=== PATIENT | female | born 1970 | race Caucasian/White ===

== ENCOUNTER 2018-02-16 21:56 | Inpatient (IN) | payer OTHER ==
[2018-02-17 00:47] LABS: ADD MAN DIFF? NO
[2018-02-17 00:50] LABS: ABNORMAL IP MESSAGE 1; BASOPHIL # 0.1 10^3/ul (0.0-0.1); EOSINOPHILS % 0.2 % (0.0-7.0); HEMATOCRIT 28.2 % (37.0-47.0); HEMOGLOBIN 8.2 g/dl (12.0-16.0); LYMPHOCYTES # 0.5 10^3/ul (0.8-2.9); LYMPHOCYTES % 9.7 % (15.0-51.0); MEAN CORPUSCULAR HEMOGLOBIN 23.2 pg (29.0-33.0); MEAN CORPUSCULAR HGB CONC 29.1 g/dl (32.0-37.0); MEAN CORPUSCULAR VOLUME 79.7 fl (82.0-101.0); MEAN PLATELET VOLUME 10.1 fl (7.4-10.4); MONOCYTE # 0.1 10^3/ul (0.3-0.9); MONOCYTES % 2.5 % (0.0-11.0); NEUTROPHIL # 4.5 10^3/ul (1.6-7.5); PLATELET COUNT 255 10^3/UL (140-415); RED BLOOD COUNT 3.54 10^6/ul (4.20-5.40); RED CELL DISTRIBUTION WIDTH 21.9 % (11.5-14.5)
[2018-02-17 00:50] LABS: WHITE BLOOD COUNT 5.3 10^3/ul (4.8-10.8)
[2018-02-17 01:08] LABS: POSITIVE DIFF @See below
[2018-02-17 01:11] LABS: ALANINE AMINOTRANSFERASE 26 IU/L (13-69); ALBUMIN 3.3 g/dl (3.3-4.9); ALBUMIN/GLOBULIN RATIO 1.13; ALKALINE PHOSPHATASE 72 IU/L (42-121); ANION GAP 9 (8-16); ASPARTATE AMINO TRANSFERASE 26 IU/L (15-46); BILIRUBIN,INDIRECT 0.2 mg/dl (0-1.1); BILIRUBIN,TOTAL 0.2 mg/dl (0.2-1.3); BLOOD UREA NITROGEN 5 mg/dl (7-20); CALCIUM 8.3 mg/dl (8.4-10.2); CARBON DIOXIDE 26 mmol/L (21-31); CHLORIDE 109 mmol/L (97-110); CREATININE 0.59 mg/dl (0.44-1.00); GLUCOSE 123 mg/dl (70-220); MAGNESIUM 1.6 mg/dl (1.7-2.5); PHOSPHORUS 3.5 mg/dl (2.5-4.9); POTASSIUM 4.1 mmol/L (3.5-5.1); SODIUM 140 mmol/L (135-144); TOTAL PROTEIN 6.2 g/dl (6.1-8.1)
[2018-02-17] MEDS ORDERED: ONDANSETRON 4 MG INJ IV (04:00)
[2018-02-17] MEDS ORDERED: ALBUTEROL/IPRATROPIUM (NEB) 3 ML AMP HHN (04:00)
[2018-02-17] MEDS ORDERED: NACL 0.9% 3 ML SYG IV (04:00)
[2018-02-17] MEDS ORDERED: ACETAMINOPHEN 325 MG TAB PO (04:00)
[2018-02-17] MEDS: CLINDAMYCIN 600 MG/D5W (PMX) 50 ML IVPB ×3 (05:43→21:24)
[2018-02-17] MEDS: morphine 2 MG INJ IV ×3 (05:43→21:29)
[2018-02-17 05:50] LABS: ADD MAN DIFF? NO
[2018-02-17 05:53] LABS: ABNORMAL IP MESSAGE 1; BASOPHILS % 0.4 % (0.0-2.0); HEMATOCRIT 28.4 % (37.0-47.0); HEMOGLOBIN 8.4 g/dl (12.0-16.0); LYMPHOCYTES # 0.4 10^3/ul (0.8-2.9); LYMPHOCYTES % 8.9 % (15.0-51.0); MEAN CORPUSCULAR HEMOGLOBIN 23.7 pg (29.0-33.0); MEAN CORPUSCULAR HGB CONC 29.6 g/dl (32.0-37.0); MEAN CORPUSCULAR VOLUME 80.2 fl (82.0-101.0); MEAN PLATELET VOLUME 10.4 fl (7.4-10.4); MONOCYTE # 0.1 10^3/ul (0.3-0.9); MONOCYTES % 1.5 % (0.0-11.0); NEUTROPHIL # 4.1 10^3/ul (1.6-7.5); PLATELET COUNT 283 10^3/UL (140-415); RED BLOOD COUNT 3.54 10^6/ul (4.20-5.40); RED CELL DISTRIBUTION WIDTH 21.9 % (11.5-14.5)
[2018-02-17 05:53] LABS: WHITE BLOOD COUNT 4.6 10^3/ul (4.8-10.8)
[2018-02-17 06:15] LABS: PROTIME 13.3 Sec (11.9-14.9)
[2018-02-17 06:16] LABS: PARTIAL THROMBOPLASTIN TIME 29.2 Sec (25.0-35.0)
[2018-02-17 06:31] LABS: POSITIVE DIFF @See below
[2018-02-17 06:44] LABS: ALANINE AMINOTRANSFERASE 24 IU/L (13-69); ALBUMIN 3.4 g/dl (3.3-4.9); ALBUMIN/GLOBULIN RATIO 1.17; ALKALINE PHOSPHATASE 81 IU/L (42-121); ANION GAP 9 (8-16); ASPARTATE AMINO TRANSFERASE 36 IU/L (15-46); BILIRUBIN,INDIRECT 0.3 mg/dl (0-1.1); BILIRUBIN,TOTAL 0.3 mg/dl (0.2-1.3); BLOOD UREA NITROGEN 6 mg/dl (7-20); CALCIUM 8.8 mg/dl (8.4-10.2); CARBON DIOXIDE 27 mmol/L (21-31); CHLORIDE 108 mmol/L (97-110); CREATININE 0.55 mg/dl (0.44-1.00); GLUCOSE 133 mg/dl (70-220); POTASSIUM 3.9 mmol/L (3.5-5.1); SODIUM 140 mmol/L (135-144); TOTAL PROTEIN 6.3 g/dl (6.1-8.1)
[2018-02-17] MEDS: FOLIC ACID 1 MG TAB PO (08:55)
[2018-02-17] MEDS: MULTIVITAMINS THERAPEUTIC TAB PO (08:55)
[2018-02-17] MEDS: THIAMINE 100 MG TAB PO (08:55)
[2018-02-17] MEDS: NICOTINE (14 MG/24 HR) PATCH TRANSDERM (08:58)
[2018-02-18 05:01] LABS: ADD MAN DIFF? NO
[2018-02-18 05:09] LABS: BASOPHIL # 0.1 10^3/ul (0.0-0.1); EOSINOPHILS # 0.1 10^3/ul (0.0-0.5); EOSINOPHILS % 1.3 % (0.0-7.0); HEMATOCRIT 27.7 % (37.0-47.0); HEMOGLOBIN 8.2 g/dl (12.0-16.0); LYMPHOCYTES # 2.6 10^3/ul (0.8-2.9); LYMPHOCYTES % 37.2 % (15.0-51.0); MEAN CORPUSCULAR HEMOGLOBIN 23.4 pg (29.0-33.0); MEAN CORPUSCULAR HGB CONC 29.6 g/dl (32.0-37.0); MEAN CORPUSCULAR VOLUME 79.1 fl (82.0-101.0); MEAN PLATELET VOLUME 10.5 fl (7.4-10.4); MONOCYTE # 0.4 10^3/ul (0.3-0.9); MONOCYTES % 5.3 % (0.0-11.0); NEUTROPHIL # 3.9 10^3/ul (1.6-7.5); NEUTROPHILS % 54.9 % (39.0-77.0); PLATELET COUNT 261 10^3/UL (140-415); RED CELL DISTRIBUTION WIDTH 21.8 % (11.5-14.5)
[2018-02-18] MEDS: CLINDAMYCIN 600 MG/D5W (PMX) 50 ML IVPB (05:14)
[2018-02-18] MEDS: morphine 2 MG INJ IV ×2 (05:20→19:11)
[2018-02-18 05:31] LABS: ANION GAP 11 (8-16); BLOOD UREA NITROGEN 8 mg/dl (7-20); CALCIUM 8.3 mg/dl (8.4-10.2); CARBON DIOXIDE 24 mmol/L (21-31); CHLORIDE 109 mmol/L (97-110); GLUCOSE 82 mg/dl (70-220); MAGNESIUM 1.6 mg/dl (1.7-2.5); PHOSPHORUS 4.5 mg/dl (2.5-4.9); POTASSIUM 3.9 mmol/L (3.5-5.1); SODIUM 140 mmol/L (135-144)
[2018-02-18 06:09] LABS: CREATININE 0.56 mg/dl (0.44-1.00)
[2018-02-18] MEDS: NICOTINE (14 MG/24 HR) PATCH TRANSDERM (08:06)
[2018-02-18] MEDS: THIAMINE 100 MG TAB PO (08:06)
[2018-02-18] MEDS: FOLIC ACID 1 MG TAB PO (08:06)
[2018-02-18] MEDS: MULTIVITAMINS THERAPEUTIC TAB PO (08:06)
[2018-02-18] MEDS: MAGNESIUM OXIDE 400 MG TAB PO (10:28)
[2018-02-18] MEDS ORDERED: VANCOMYCIN IV PER PHARMACY XX (13:00)
[2018-02-18] MEDS: VANCOMYCIN 1 GM 250 ML IVPB (13:59)
[2018-02-18] MEDS: MAGNESIUM SULFATE 2 GM/50 ML 50 ML IVPB (16:04)
[2018-02-18] MEDS: ONDANSETRON 4 MG INJ IV (19:11)
[2018-02-18] MEDS: MAGNESIUM CHLORIDE (SR) 64 MG TAB PO (20:40)
[2018-02-19] MEDS: VANCOMYCIN 750 MG in DEXTROSE 5% 150 ML IVPB ×2 (02:21→14:10)
[2018-02-19 05:50] LABS: ADD MAN DIFF? NO; BASOPHIL # 0.1 10^3/ul (0.0-0.1); BASOPHILS % 1.1 % (0.0-2.0); EOSINOPHILS # 0.2 10^3/ul (0.0-0.5); EOSINOPHILS % 3.4 % (0.0-7.0); HEMATOCRIT 31.4 % (37.0-47.0); HEMOGLOBIN 9.4 g/dl (12.0-16.0); LYMPHOCYTES # 2.3 10^3/ul (0.8-2.9); LYMPHOCYTES % 35.5 % (15.0-51.0); MEAN CORPUSCULAR HEMOGLOBIN 23.7 pg (29.0-33.0); MEAN CORPUSCULAR HGB CONC 29.9 g/dl (32.0-37.0); MEAN CORPUSCULAR VOLUME 79.1 fl (82.0-101.0); MEAN PLATELET VOLUME 10.3 fl (7.4-10.4); MONOCYTE # 0.4 10^3/ul (0.3-0.9); MONOCYTES % 5.8 % (0.0-11.0); NEUTROPHIL # 3.6 10^3/ul (1.6-7.5); PLATELET COUNT 289 10^3/UL (140-415); RED BLOOD COUNT 3.97 10^6/ul (4.20-5.40); RED CELL DISTRIBUTION WIDTH 21.7 % (11.5-14.5)
[2018-02-19 05:50] LABS: WHITE BLOOD COUNT 6.6 10^3/ul (4.8-10.8)
[2018-02-19 06:17] LABS: IRON 33 ug/dl (35-150)
[2018-02-19 06:22] LABS: ANION GAP 11 (8-16); BLOOD UREA NITROGEN 8 mg/dl (7-20); CALCIUM 8.9 mg/dl (8.4-10.2); CARBON DIOXIDE 30 mmol/L (21-31); CHLORIDE 105 mmol/L (97-110); CREATININE 0.58 mg/dl (0.44-1.00); GLUCOSE 76 mg/dl (70-220); MAGNESIUM 2.1 mg/dl (1.7-2.5); POTASSIUM 4.5 mmol/L (3.5-5.1); SODIUM 141 mmol/L (135-144)
[2018-02-19 06:26] LABS: % IRON SATURATION 9 % SAT (22-52); TOTAL IRON BINDING CAPACITY 377 ug/dl (241-421)
[2018-02-19 06:52] LABS: FERRITIN 9.1 ng/ml (6.2-137.0)
[2018-02-19] MEDS: MAGNESIUM CHLORIDE (SR) 64 MG TAB PO (08:37)
[2018-02-19] MEDS: FOLIC ACID 1 MG TAB PO (08:37)
[2018-02-19] MEDS: MULTIVITAMINS THERAPEUTIC TAB PO (08:37)
[2018-02-19] MEDS: NICOTINE (14 MG/24 HR) PATCH TRANSDERM (08:39)
[2018-02-19] MEDS: THIAMINE 100 MG TAB PO (09:55)
== END 2018-02-19 16:03 | disposition home or self-care (01) | DRG 603 ==
LOC: MS3 21:56
DX: L03.221 Cellulitis of neck (principal); I47.2 Ventricular tachycardia; H91.3 Deaf nonspeaking, not elsewhere classified; J43.9 Emphysema, unspecified; F10.10 Alcohol abuse, uncomplicated; E83.42 Hypomagnesemia; I34.0 Nonrheumatic mitral (valve) insufficiency; F17.210 Nicotine dependence, cigarettes, uncomplicated
CPT/HCPCS: 80048; 80053; 82728; 83540; 83735; 84100; 85025; 85610; 85730; 87070; 93005; 93306

== ENCOUNTER 2018-03-10 07:14 | Emergency (ER) | payer OTHER ==
[2018-03-10] MEDS: ALBUTEROL 0.083% (NEB) 2.5 MG/3 ML AMP HHN (08:01)
[2018-03-10 08:21] LABS: ADD MAN DIFF? NO
[2018-03-10 08:24] LABS: BASOPHIL # 0.1 10^3/ul (0.0-0.1); BASOPHILS % 1.2 % (0.0-2.0); EOSINOPHILS % 0.2 % (0.0-7.0); HEMATOCRIT 31.6 % (37.0-47.0); HEMOGLOBIN 9.9 g/dl (12.0-16.0); LYMPHOCYTES # 0.9 10^3/ul (0.8-2.9); LYMPHOCYTES % 9.9 % (15.0-51.0); MEAN CORPUSCULAR HEMOGLOBIN 23.7 pg (29.0-33.0); MEAN CORPUSCULAR HGB CONC 31.3 g/dl (32.0-37.0); MEAN CORPUSCULAR VOLUME 75.8 fl (82.0-101.0); MEAN PLATELET VOLUME 9.4 fl (7.4-10.4); MONOCYTE # 0.4 10^3/ul (0.3-0.9); MONOCYTES % 4.5 % (0.0-11.0); NEUTROPHIL # 7.9 10^3/ul (1.6-7.5); NEUTROPHILS % 83.9 % (39.0-77.0); PLATELET COUNT 314 10^3/UL (140-415); RED BLOOD COUNT 4.17 10^6/ul (4.20-5.40); RED CELL DISTRIBUTION WIDTH 21.3 % (11.5-14.5)
[2018-03-10 08:24] LABS: WHITE BLOOD COUNT 9.4 10^3/ul (4.8-10.8)
[2018-03-10 08:45] LABS: ALANINE AMINOTRANSFERASE 24 IU/L (13-69); ALBUMIN 4.5 g/dl (3.3-4.9); ALBUMIN/GLOBULIN RATIO 1.21; ALKALINE PHOSPHATASE 81 IU/L (42-121); ANION GAP 20 (8-16); ASPARTATE AMINO TRANSFERASE 43 IU/L (15-46); BILIRUBIN,INDIRECT 0.7 mg/dl (0-1.1); BILIRUBIN,TOTAL 0.7 mg/dl (0.2-1.3); BLOOD UREA NITROGEN 8 mg/dl (7-20); CALCIUM 9.3 mg/dl (8.4-10.2); CARBON DIOXIDE 22 mmol/L (21-31); CHLORIDE 103 mmol/L (97-110); CREATININE 0.61 mg/dl (0.44-1.00); GLUCOSE 81 mg/dl (70-220); LIPASE 275 U/L (23-300); POTASSIUM 4.5 mmol/L (3.5-5.1); SODIUM 140 mmol/L (135-144); TOTAL PROTEIN 8.2 g/dl (6.1-8.1)
[2018-03-10 09:01] LABS: TROPONIN-I < 0.012 ng/ml (0.000-0.120)
== END 2018-03-10 09:41 | disposition home or self-care (01) ==
LOC: E/R 07:14
DX: J44.1 Chronic obstructive pulmonary disease with (acute) exacerbation (principal); R07.9 Chest pain, unspecified; F17.210 Nicotine dependence, cigarettes, uncomplicated
CPT/HCPCS: 36415; 71045; 80053; 83690; 84484; 85025; 93005; 94664; 99285-25

== ENCOUNTER 2019-01-23 00:19 | Inpatient (IN) | payer OTHER ==
[2019-01-23] MEDS ORDERED: NACL 0.9% 3 ML SYG IV (02:30)
[2019-01-23] MEDS ORDERED: NITROGLYCERIN (SL) 0.4 MG TAB SL (02:30)
[2019-01-23] MEDS ORDERED: ONDANSETRON 4 MG INJ IV (02:30)
[2019-01-23] MEDS ORDERED: ACETAMINOPHEN 325 MG TAB PO (02:30)
[2019-01-23] MEDS ORDERED: ALBUTEROL/IPRATROPIUM (NEB) 3 ML AMP HHN (02:30)
[2019-01-23] MEDS: HYDROCODONE/APAP (5/325) TAB PO ×2 (02:31→19:08)
[2019-01-23] MEDS: METHYLPREDNISOLONE 125 MG INJ IV (02:31)
[2019-01-23] MEDS: PANTOPRAZOLE 40 MG INJ IV ×2 (05:58→17:43)
[2019-01-23 06:41] LABS: ADD MAN DIFF? NO
[2019-01-23 06:53] LABS: ABNORMAL IP MESSAGE 1; BASOPHILS % 1.2 % (0.0-2.0); EOSINOPHILS % 0.6 % (0.0-7.0); HEMATOCRIT 30.2 % (37.0-47.0); HEMOGLOBIN 9.1 g/dl (12.0-16.0); LYMPHOCYTES # 0.5 10^3/ul (0.8-2.9); LYMPHOCYTES % 13.6 % (15.0-51.0); MEAN CORPUSCULAR HEMOGLOBIN 25.1 pg (29.0-33.0); MEAN CORPUSCULAR HGB CONC 30.1 g/dl (32.0-37.0); MEAN CORPUSCULAR VOLUME 83.4 fl (82.0-101.0); MEAN PLATELET VOLUME 10.6 fl (7.4-10.4); MONOCYTE # 0.1 10^3/ul (0.3-0.9); MONOCYTES % 2.1 % (0.0-11.0); NEUTROPHIL # 2.7 10^3/ul (1.6-7.5); NEUTROPHILS % 81.9 % (39.0-77.0); PLATELET COUNT 213 10^3/UL (140-415); RED BLOOD COUNT 3.62 10^6/ul (4.20-5.40); RED CELL DISTRIBUTION WIDTH 21.2 % (11.5-14.5)
[2019-01-23 06:53] LABS: WHITE BLOOD COUNT 3.3 10^3/ul (4.8-10.8)
[2019-01-23 06:54] LABS: POSITIVE DIFF @See below
[2019-01-23 07:22] LABS: LIPASE 504 U/L (23-300)
[2019-01-23 07:23] LABS: ETHANOL < 10.0 mg/dl (0-0)
[2019-01-23 07:24] LABS: ALANINE AMINOTRANSFERASE 58 IU/L (13-69); ALBUMIN 3.5 g/dl (3.3-4.9); ALKALINE PHOSPHATASE 77 IU/L (42-121); ANION GAP 8 (5-13); ASPARTATE AMINO TRANSFERASE 112 IU/L (15-46); BILIRUBIN,INDIRECT 0.5 mg/dl (0-1.1); BILIRUBIN,TOTAL 0.5 mg/dl (0.2-1.3); BLOOD UREA NITROGEN 8 mg/dl (7-20); CALCIUM 8.8 mg/dl (8.4-10.2); CARBON DIOXIDE 21 mmol/L (21-31); CHLORIDE 108 mmol/L (97-110); CREATININE 0.53 mg/dl (0.44-1.00); Estimated GFR > 60 mL/min (>60); GLUCOSE 86 mg/dl (70-220); MAGNESIUM 2.3 mg/dl (1.7-2.5); POTASSIUM 3.9 mmol/L (3.5-5.1); SODIUM 137 mmol/L (135-144); TOTAL PROTEIN 6.5 g/dl (6.1-8.1)
[2019-01-23 07:25] LABS: ALBUMIN/GLOBULIN RATIO 1.16; CHOLESTEROL 153 mg/dl (100-200); CREATINE KINASE 63 IU/L (23-200); TRIGLYCERIDES 59 mg/dl (0-149)
[2019-01-23 07:30] LABS: CK INDEX 1.3; CK-MB 0.84 ng/ml (0.0-2.4); TROPONIN-I < 0.012 ng/ml (0.000-0.120)
[2019-01-23 07:36] LABS: CHOL/HDL RATIO 1.3 RATIO; HDL CHOLESTEROL 113 mg/dl (34-88); LDL CHOLESTEROL,CALCULATED 28 mg/dl
[2019-01-23] MEDS ORDERED: HEPARIN 5,000 UNIT/1 ML VIAL SC (09:00)
[2019-01-23] MEDS: NICOTINE (21 MG/24 HR) PATCH TRANSDERM (10:00)
[2019-01-23 10:36] LABS: AMPHETAMINE/METHAMPHETAMINE Negative (NEGATIVE); BARBITURATES Negative (NEGATIVE); BENZODIAZEPINES Negative (NEGATIVE); CANNABINOIDS Negative (NEGATIVE); COCAINE Negative (NEGATIVE)
[2019-01-23 10:46] LABS: OPIATES Positive (NEGATIVE)
[2019-01-23] MEDS: TIOTROPIUM 18 MCG CAPSULE INHA DEV INH (11:05)
[2019-01-23 11:26] LABS: HEMATOCRIT 30.5 % (37.0-47.0); HEMOGLOBIN 9.3 g/dl (12.0-16.0)
[2019-01-23 11:50] LABS: CREATINE KINASE 54 IU/L (23-200)
[2019-01-23 12:03] LABS: CK-MB 0.53 ng/ml (0.0-2.4); TROPONIN-I < 0.012 ng/ml (0.000-0.120)
[2019-01-23] MEDS: SOD FERRIC GLUC COMPLX 125 MG in SOD CHLORIDE 0.9% 100 ML IVPB (12:10)
[2019-01-23 12:21] LABS: IRON 14 ug/dl (35-150)
[2019-01-23 12:23] LABS: CARCINOEMBRYONIC ANTIGEN 3.9 ng/ml (0.0-5.0)
[2019-01-23 12:25] LABS: FERRITIN 16.9 ng/ml (6.2-137.0)
[2019-01-23 12:31] LABS: % IRON SATURATION 4 % SAT (22-52); TOTAL IRON BINDING CAPACITY 331 ug/dl (241-421)
[2019-01-23] MEDS: BISACODYL (EC) 5 MG TAB PO (15:48)
[2019-01-23] MEDS: MAGNESIUM CITRATE 300 ML BTL PO (17:43)
[2019-01-23] MEDS: POLYETHYLENE GLYCOL 3350 119 GM POWDER PO (17:43)
[2019-01-23 18:26] LABS: HEMATOCRIT 31.1 % (37.0-47.0); HEMOGLOBIN 9.3 g/dl (12.0-16.0)
[2019-01-23 19:01] LABS: TROPONIN-I < 0.012 ng/ml (0.000-0.120)
[2019-01-24] MEDS: HYDROCODONE/APAP (5/325) TAB PO (00:53)
[2019-01-24 00:57] LABS: HEMATOCRIT 28.2 % (37.0-47.0); HEMOGLOBIN 8.6 g/dl (12.0-16.0)
[2019-01-24 05:10] LABS: ADD MAN DIFF? NO
[2019-01-24 05:12] LABS: WHITE BLOOD COUNT 4.9 10^3/ul (4.8-10.8)
[2019-01-24 05:12] LABS: BASOPHILS % 0.8 % (0.0-2.0); EOSINOPHILS # 0.1 10^3/ul (0.0-0.5); EOSINOPHILS % 1.4 % (0.0-7.0); HEMATOCRIT 28.2 % (37.0-47.0); HEMOGLOBIN 8.5 g/dl (12.0-16.0); LYMPHOCYTES % 39.6 % (15.0-51.0); MEAN CORPUSCULAR HEMOGLOBIN 25.7 pg (29.0-33.0); MEAN CORPUSCULAR HGB CONC 30.1 g/dl (32.0-37.0); MEAN CORPUSCULAR VOLUME 85.2 fl (82.0-101.0); MEAN PLATELET VOLUME 10.9 fl (7.4-10.4); MONOCYTE # 0.4 10^3/ul (0.3-0.9); MONOCYTES % 8.5 % (0.0-11.0); NEUTROPHIL # 2.4 10^3/ul (1.6-7.5); NEUTROPHILS % 49.3 % (39.0-77.0); PLATELET COUNT 212 10^3/UL (140-415); RED BLOOD COUNT 3.31 10^6/ul (4.20-5.40); RED CELL DISTRIBUTION WIDTH 21.4 % (11.5-14.5)
[2019-01-24 05:44] LABS: ANION GAP 9 (5-13); BLOOD UREA NITROGEN 9 mg/dl (7-20); CALCIUM 8.4 mg/dl (8.4-10.2); CARBON DIOXIDE 24 mmol/L (21-31); CHLORIDE 105 mmol/L (97-110); CREATININE 0.47 mg/dl (0.44-1.00); Estimated GFR > 60 mL/min (>60); GLUCOSE 85 mg/dl (70-220); MAGNESIUM 2.1 mg/dl (1.7-2.5); PHOSPHORUS 2.9 mg/dl (2.5-4.9); SODIUM 138 mmol/L (135-144)
[2019-01-24] MEDS: PANTOPRAZOLE 40 MG INJ IV (05:55)
[2019-01-24] MEDS: BISACODYL (EC) 5 MG TAB PO (07:03)
[2019-01-24] MEDS: POLYETHYLENE GLYCOL 3350 119 GM POWDER PO (07:04)
[2019-01-24] MEDS: POTASSIUM CHLORIDE (SR) 20 MEQ TAB PO (07:27)
[2019-01-24] MEDS: NICOTINE (21 MG/24 HR) PATCH TRANSDERM (09:00)
[2019-01-24] MEDS: TIOTROPIUM 18 MCG CAPSULE INHA DEV INH (09:00)
[2019-01-24 09:52] LABS: HEMATOCRIT 31.2 % (37.0-47.0); HEMOGLOBIN 9.3 g/dl (12.0-16.0)
[2019-01-24] MEDS ORDERED: POTASSIUM CHLORIDE 100 ML IVPB (10:00)
[2019-01-24] MEDS ORDERED: MUPIROCIN 2% 22 GM OINT TOP (10:30)
[2019-01-24] MEDS: MUPIROCIN 2% 22 GM OINT TOP (11:39)
[2019-01-24] MEDS ORDERED: LIDOCAINE 100 MG SYRINGE (11:55)
[2019-01-24] MEDS ORDERED: PROPOFOL 40 ML (11:55)
[2019-01-24] MEDS ORDERED: ONDANSETRON 4 MG INJ IV (12:00)
[2019-01-24] MEDS ORDERED: METOCLOPRAMIDE 10 MG INJ IV (12:00)
[2019-01-24] MEDS ORDERED: hydrALAzine 20 MG INJ IV (12:00)
[2019-01-24] MEDS ORDERED: LABETALOL HCL 20MG INJ IV (12:00)
[2019-01-24] MEDS: SOD FERRIC GLUC COMPLX 125 MG in SOD CHLORIDE 0.9% 100 ML IVPB (14:43)
== END 2019-01-24 14:40 | disposition left against medical advice (07) | DRG 378 ==
LOC: 6WM 00:19
PROC: 0DB98ZX Excision of Duodenum, Via Natural or Artificial Opening Endoscopic, Diagnostic (ICD-10-PCS; principal; 2019-01-24 12:04)
PROC: 0DB68ZX Excision of Stomach, Via Natural or Artificial Opening Endoscopic, Diagnostic (ICD-10-PCS; 2019-01-24 12:04)
PROC: 0DBG8ZX Excision of Left Large Intestine, Via Natural or Artificial Opening Endoscopic, Diagnostic (ICD-10-PCS; 2019-01-24 12:04)
PROC: 0DBL8ZX Excision of Transverse Colon, Via Natural or Artificial Opening Endoscopic, Diagnostic (ICD-10-PCS; 2019-01-24 12:04)
PROC: 0DBF8ZX Excision of Right Large Intestine, Via Natural or Artificial Opening Endoscopic, Diagnostic (ICD-10-PCS; 2019-01-24 12:04)
DX: K92.0 Hematemesis (principal); D62 Acute posthemorrhagic anemia; K62.5 Hemorrhage of anus and rectum; R42 Dizziness and giddiness; Z72.0 Tobacco use; F10.20 Alcohol dependence, uncomplicated; Z59.0 Homelessness; Z22.322 Carrier or suspected carrier of Methicillin resistant Staphylococcus aureus; Z91.19 Patient's noncompliance with other medical treatment and regimen; H91.93 Unspecified hearing loss, bilateral; R07.9 Chest pain, unspecified; J43.8 Other emphysema; K64.8 Other hemorrhoids; K31.84 Gastroparesis
CPT/HCPCS: 71045; 74018; 80048; 80053; 80061; 80307; 82378; 82550; 82553; 82728; 83540; 83690; 83735; 84100; 84484; 84703; 85014; 85018; 85025; 87081; 88305; 93005; 93306; 93880

== ENCOUNTER 2019-03-02 16:12 | Inpatient (IN) | payer OTHER ==
[2019-03-02] MEDS ORDERED: IPRATROPIUM (NEB) 0.5 MG/2.5 ML AMP HHN (17:00)
[2019-03-02] MEDS ORDERED: ACETAMINOPHEN 325 MG TAB PO (17:00)
[2019-03-02] MEDS ORDERED: NACL 0.9% 3 ML SYG IV (17:00)
[2019-03-02] MEDS ORDERED: LEVALBUTEROL (NEB) 1.25 MG/0.5 ML AMP HHN (17:00)
[2019-03-02] MEDS ORDERED: ONDANSETRON 4 MG INJ IV (17:00)
[2019-03-02] MEDS ORDERED: LORAZEPAM 2 MG INJ IV (17:30)
[2019-03-02] MEDS: SUCRALFATE (100 MG/ML) 10ML CUP PO ×2 (17:30→21:00)
[2019-03-02 17:56] LABS: ADD MAN DIFF? NO
[2019-03-02 17:59] LABS: BASOPHIL # 0.1 10^3/ul (0.0-0.1); BASOPHILS % 1.8 % (0.0-2.0); EOSINOPHILS # 0.1 10^3/ul (0.0-0.5); EOSINOPHILS % 0.9 % (0.0-7.0); HEMATOCRIT 29.2 % (37.0-47.0); HEMOGLOBIN 9.1 g/dl (12.0-16.0); LYMPHOCYTES # 1.3 10^3/ul (0.8-2.9); LYMPHOCYTES % 23.4 % (15.0-51.0); MEAN CORPUSCULAR HEMOGLOBIN 25.4 pg (29.0-33.0); MEAN CORPUSCULAR HGB CONC 31.2 g/dl (32.0-37.0); MEAN CORPUSCULAR VOLUME 81.6 fl (82.0-101.0); MEAN PLATELET VOLUME 9.2 fl (7.4-10.4); MONOCYTE # 0.5 10^3/ul (0.3-0.9); MONOCYTES % 9.8 % (0.0-11.0); NEUTROPHIL # 3.5 10^3/ul (1.6-7.5); NEUTROPHILS % 63.9 % (39.0-77.0); PLATELET COUNT 333 10^3/UL (140-415); RED BLOOD COUNT 3.58 10^6/ul (4.20-5.40)
[2019-03-02 17:59] LABS: WHITE BLOOD COUNT 5.5 10^3/ul (4.8-10.8)
[2019-03-02 18:13] LABS: LACTIC ACID 0.8 mmol/L (0.5-2.0)
[2019-03-02 18:18] LABS: ALANINE AMINOTRANSFERASE 32 IU/L (13-69); ALBUMIN 3.5 g/dl (3.3-4.9); ALBUMIN/GLOBULIN RATIO 1.12; ALKALINE PHOSPHATASE 85 IU/L (42-121); ANION GAP 7 (5-13); ASPARTATE AMINO TRANSFERASE 69 IU/L (15-46); BILIRUBIN,INDIRECT 0.7 mg/dl (0-1.1); BILIRUBIN,TOTAL 0.7 mg/dl (0.2-1.3); BLOOD UREA NITROGEN 4 mg/dl (7-20); CALCIUM 8.2 mg/dl (8.4-10.2); CARBON DIOXIDE 24 mmol/L (21-31); CHLORIDE 108 mmol/L (97-110); CREATININE 0.54 mg/dl (0.44-1.00); Estimated GFR > 60 mL/min (>60); GLUCOSE 76 mg/dl (70-220); POTASSIUM 3.5 mmol/L (3.5-5.1); SODIUM 139 mmol/L (135-144); TOTAL PROTEIN 6.6 g/dl (6.1-8.1)
[2019-03-02 18:26] LABS: LIPASE 226 U/L (23-300)
[2019-03-02 18:29] LABS: TROPONIN-I < 0.012 ng/ml (0.000-0.120)
[2019-03-02] MEDS: SOD CHLORIDE 0.9% 1,000 ML IV (18:38)
[2019-03-02] MEDS: PANTOPRAZOLE 40 MG INJ IV (18:40)
[2019-03-02] MEDS: IPRATROPIUM (NEB) 0.5 MG/2.5 ML AMP HHN (20:02)
[2019-03-02] MEDS: LEVALBUTEROL (NEB) 1.25 MG/0.5 ML AMP HHN (20:12)
[2019-03-02] MEDS: BUDESONIDE (NEB) 0.5MG/2ML AMP HHN (20:22)
[2019-03-03] MEDS: LEVALBUTEROL (NEB) 1.25 MG/0.5 ML AMP HHN ×4 (02:04→20:45)
[2019-03-03] MEDS: LORAZEPAM 2 MG INJ IV (02:38)
[2019-03-03 05:38] LABS: ADD MAN DIFF? NO
[2019-03-03 05:39] LABS: BASOPHIL # 0.1 10^3/ul (0.0-0.1); BASOPHILS % 1.5 % (0.0-2.0); EOSINOPHILS # 0.1 10^3/ul (0.0-0.5); EOSINOPHILS % 2.7 % (0.0-7.0); HEMOGLOBIN 8.9 g/dl (12.0-16.0); LYMPHOCYTES # 1.2 10^3/ul (0.8-2.9); LYMPHOCYTES % 22.6 % (15.0-51.0); MEAN CORPUSCULAR HEMOGLOBIN 25.4 pg (29.0-33.0); MEAN CORPUSCULAR HGB CONC 30.7 g/dl (32.0-37.0); MEAN CORPUSCULAR VOLUME 82.9 fl (82.0-101.0); MEAN PLATELET VOLUME 9.6 fl (7.4-10.4); MONOCYTE # 0.4 10^3/ul (0.3-0.9); MONOCYTES % 7.6 % (0.0-11.0); NEUTROPHIL # 3.4 10^3/ul (1.6-7.5); NEUTROPHILS % 65.4 % (39.0-77.0); PLATELET COUNT 295 10^3/UL (140-415); RED CELL DISTRIBUTION WIDTH 21.2 % (11.5-14.5)
[2019-03-03 05:39] LABS: WHITE BLOOD COUNT 5.3 10^3/ul (4.8-10.8)
[2019-03-03 05:54] LABS: HEMOGLOBIN A1C 5.1 % (0-5.9)
[2019-03-03] MEDS ORDERED: PANTOPRAZOLE (EC) 40 MG TAB PO ×2 (06:00)
[2019-03-03] MEDS: PANTOPRAZOLE 40 MG INJ IV ×2 (06:13→17:39)
[2019-03-03 06:18] LABS: ALANINE AMINOTRANSFERASE 26 IU/L (13-69); ALBUMIN 3.2 g/dl (3.3-4.9); ALBUMIN/GLOBULIN RATIO 1.14; ALKALINE PHOSPHATASE 68 IU/L (42-121); ANION GAP 4 (5-13); ASPARTATE AMINO TRANSFERASE 54 IU/L (15-46); BILIRUBIN,INDIRECT 0.7 mg/dl (0-1.1); BILIRUBIN,TOTAL 0.7 mg/dl (0.2-1.3); BLOOD UREA NITROGEN 5 mg/dl (7-20); CALCIUM 8.1 mg/dl (8.4-10.2); CARBON DIOXIDE 25 mmol/L (21-31); CHLORIDE 109 mmol/L (97-110); CHOLESTEROL 168 mg/dl (100-200); CREATININE 0.54 mg/dl (0.44-1.00); Estimated GFR > 60 mL/min (>60); GLUCOSE 73 mg/dl (70-220); MAGNESIUM 1.7 mg/dl (1.7-2.5); POTASSIUM 3.2 mmol/L (3.5-5.1); SODIUM 138 mmol/L (135-144); TRIGLYCERIDES 57 mg/dl (0-149)
[2019-03-03 06:27] LABS: CHOL/HDL RATIO 1.4 RATIO; HDL CHOLESTEROL 120 mg/dl (34-88); LDL CHOLESTEROL,CALCULATED 37 mg/dl
[2019-03-03 07:00] LABS: ADD UMIC NO; UR ASCORBIC ACID NEGATIVE (NEGATIVE); UR BILIRUBIN (Dip) NEGATIVE (NEGATIVE); UR BLOOD (Dip) NEGATIVE (NEGATIVE); UR CLARITY CLEAR (CLEAR); UR COLOR YELLOW (YELLOW); UR GLUCOSE (Dip) NEGATIVE (NEGATIVE); UR KETONES (Dip) 1+ mg/dL (NEGATIVE); UR LEUKOCYTE ESTERASE (Dip) NEGATIVE Leu/ul (NEGATIVE); UR NITRITE (Dip) NEGATIVE (NEGATIVE); UR SPECIFIC GRAVITY (Dip) 1.018 (1.003-1.030); UR TOTAL PROTEIN (Dip) NEGATIVE (NEGATIVE); UR UROBILINOGEN (Dip) NEGATIVE (NEGATIVE)
[2019-03-03 07:27] LABS: AMPHETAMINE/METHAMPHETAMINE Negative (NEGATIVE); BARBITURATES Negative (NEGATIVE); BENZODIAZEPINES Negative (NEGATIVE); OPIATES Negative (NEGATIVE)
[2019-03-03 07:30] LABS: COCAINE Negative (NEGATIVE)
[2019-03-03 07:35] LABS: CANNABINOIDS Positive (NEGATIVE)
[2019-03-03] MEDS: CHLORDIAZEPOXIDE 5 MG CAP PO ×3 (08:21→20:12)
[2019-03-03] MEDS: SUCRALFATE (100 MG/ML) 10ML CUP PO ×4 (08:21→20:12)
[2019-03-03] MEDS: POTASSIUM CHLORIDE 20 MEQ POWDER FOR ORAL SOLN PO (08:22)
[2019-03-03] MEDS: IPRATROPIUM (NEB) 0.5 MG/2.5 ML AMP HHN ×3 (09:08→20:44)
[2019-03-03] MEDS: BUDESONIDE (NEB) 0.5MG/2ML AMP HHN ×2 (09:08→20:45)
[2019-03-03] MEDS: MULTIVITAMINS 10 ML, THIAMINE 100 MG, FOLIC ACID 1 MG in SOD CHLORIDE 0.9% 1,000 ML IVPB (09:32)
[2019-03-03] MEDS: AZITHROMYCIN 500MG/NS (PMX) 250 ML IVPB (12:35)
[2019-03-04] MEDS ORDERED: THIAMINE 100 MG TAB PO (09:00)
[2019-03-04] MEDS ORDERED: FOLIC ACID 1 MG TAB PO (09:00)
== END 2019-03-03 21:55 | disposition left against medical advice (07) | DRG 204 ==
LOC: 6WM 16:12
DX: R06.02 Shortness of breath (principal); J44.1 Chronic obstructive pulmonary disease with (acute) exacerbation; R10.9 Unspecified abdominal pain; F10.129 Alcohol abuse with intoxication, unspecified; F20.9 Schizophrenia, unspecified
CPT/HCPCS: 71045; 74176; 76856; 80053; 80061; 80307; 81003; 83036; 83605; 83690; 83735; 84443; 84484; 84703; 85025; 94640; 94664

== ENCOUNTER 2019-03-03 22:23 | Emergency (ER) | payer OTHER | END 2019-03-04 03:20 | disposition home or self-care (01) | LOC: E/R 22:23 | DX: J44.9 Chronic obstructive pulmonary disease, unspecified (principal); Z87.891 Personal history of nicotine dependence | CPT/HCPCS: 99282; Z7502 ==

== ENCOUNTER 2019-03-23 01:49 | Inpatient (IN) | payer OTHER ==
[2019-03-23] MEDS ORDERED: morphine 2 MG INJ IV (03:00)
[2019-03-23] MEDS ORDERED: ACETAMINOPHEN 325 MG TAB PO (03:00)
[2019-03-23] MEDS ORDERED: DOCUSATE SODIUM 100 MG CAP PO (03:00)
[2019-03-23] MEDS ORDERED: NACL 0.9% 3 ML SYG IV (03:00)
[2019-03-23] MEDS ORDERED: BISACODYL (EC) 5 MG TAB PO (03:00)
[2019-03-23] MEDS: SOD CHLORIDE 0.9% 1,000 ML IV ×2 (03:37→14:56)
[2019-03-23 03:55] LABS: ADD MAN DIFF? NO
[2019-03-23 04:16] LABS: INR 0.99; PARTIAL THROMBOPLASTIN TIME 26.8 Sec (23.0-35.0); PROTIME 13.2 Sec (11.9-14.9)
[2019-03-23 04:18] LABS: ALANINE AMINOTRANSFERASE 31 IU/L (13-69); ALBUMIN 3.5 g/dl (3.3-4.9); ALBUMIN/GLOBULIN RATIO 1.09; ALKALINE PHOSPHATASE 77 IU/L (42-121); ANION GAP 9 (5-13); ASPARTATE AMINO TRANSFERASE 40 IU/L (15-46); BILIRUBIN,INDIRECT 0.4 mg/dl (0-1.1); BILIRUBIN,TOTAL 0.4 mg/dl (0.2-1.3); BLOOD UREA NITROGEN 6 mg/dl (7-20); CALCIUM 8.4 mg/dl (8.4-10.2); CARBON DIOXIDE 23 mmol/L (21-31); CHLORIDE 110 mmol/L (97-110); CHOL/HDL RATIO 1.8 RATIO; CHOLESTEROL 165 mg/dl (100-200); CREATININE 0.52 mg/dl (0.44-1.00); Estimated GFR > 60 mL/min (>60); GLUCOSE 105 mg/dl (70-220); HDL CHOLESTEROL 88 mg/dl (34-88); LDL CHOLESTEROL,CALCULATED 66 mg/dl; MAGNESIUM 1.7 mg/dl (1.7-2.5); POTASSIUM 3.4 mmol/L (3.5-5.1); SODIUM 142 mmol/L (135-144); TOTAL PROTEIN 6.7 g/dl (6.1-8.1); TRIGLYCERIDES 56 mg/dl (0-149)
[2019-03-23 04:20] LABS: WHITE BLOOD COUNT 3.1 10^3/ul (4.8-10.8)
[2019-03-23 04:20] LABS: ABNORMAL IP MESSAGE 1; BASOPHILS % 1.3 % (0.0-2.0); HEMATOCRIT 31.5 % (37.0-47.0); HEMOGLOBIN 9.4 g/dl (12.0-16.0); LYMPHOCYTES # 0.4 10^3/ul (0.8-2.9); LYMPHOCYTES % 14.2 % (15.0-51.0); MEAN CORPUSCULAR HEMOGLOBIN 25.5 pg (29.0-33.0); MEAN CORPUSCULAR HGB CONC 29.8 g/dl (32.0-37.0); MEAN CORPUSCULAR VOLUME 85.4 fl (82.0-101.0); MEAN PLATELET VOLUME 10.2 fl (7.4-10.4); MONOCYTE # 0.1 10^3/ul (0.3-0.9); MONOCYTES % 2.3 % (0.0-11.0); NEUTROPHIL # 2.5 10^3/ul (1.6-7.5); NEUTROPHILS % 81.9 % (39.0-77.0); PLATELET COUNT 256 10^3/UL (140-415); RED BLOOD COUNT 3.69 10^6/ul (4.20-5.40); RED CELL DISTRIBUTION WIDTH 23.1 % (11.5-14.5)
[2019-03-23] MEDS ORDERED: GUAIFENESIN/DM 5ML CUP PO (04:30)
[2019-03-23 04:42] LABS: POSITIVE DIFF @See below
[2019-03-23] MEDS ORDERED: LIDOCAINE 2% VISC 15 ML CUP PO ×2 (07:30→09:00)
[2019-03-23] MEDS ORDERED: HYDROmorphONE 0.5 MG/0.5 ML SYG IV (07:30)
[2019-03-23] MEDS: FAMOTIDINE 20 MG INJ IV (09:16)
[2019-03-23] MEDS: SOD CHLORIDE 0.9% 100 ML (16:05)
[2019-03-23] MEDS: IOHEXOL 300MG/ML 150 ML BTL ×2 (16:05)
[2019-03-23] MEDS: LORAZEPAM 2 MG INJ IV (16:07)
[2019-03-23] MEDS: ONDANSETRON 4 MG INJ IV (16:07)
[2019-03-23] MEDS ORDERED: NICOTINE (21 MG/24 HR) PATCH TRANSDERM (20:30)
[2019-03-23] MEDS ORDERED: LORAZEPAM 2 MG INJ IV (20:30)
[2019-03-23] MEDS ORDERED: NICOTINE POLACRILEX 2 MG GUM BUCCAL (20:30)
== END 2019-03-23 20:25 | disposition left against medical advice (07) | DRG 390 ==
LOC: PP2 01:49
PROVIDERS: Family Medicine
DX: K56.609 Unspecified intestinal obstruction, unspecified as to partial versus complete obstruction (principal); J44.9 Chronic obstructive pulmonary disease, unspecified; K29.70 Gastritis, unspecified, without bleeding; K20.9 Esophagitis, unspecified; H91.90 Unspecified hearing loss, unspecified ear; Z91.19 Patient's noncompliance with other medical treatment and regimen; Z59.0 Homelessness
CPT/HCPCS: 74018; 74250; 80053; 80061; 83735; 84443; 84703; 85025; 85610; 85730; 87081

== ENCOUNTER 2019-04-01 14:30 | Inpatient (IN) | payer OTHER ==
[2019-04-01] MEDS: SOD CHLORIDE 0.9% 1,000 ML IV (16:25)
[2019-04-01] MEDS: ACETAMINOPHEN 325 MG TAB PO (16:26)
[2019-04-01] MEDS ORDERED: NACL 0.9% 3 ML SYG IV (16:30)
[2019-04-01] MEDS ORDERED: DOCUSATE SODIUM 100 MG CAP PO (16:30)
[2019-04-01] MEDS ORDERED: ZOLPIDEM 5 MG TAB PO (16:30)
[2019-04-01] MEDS: morphine 2 MG INJ IV (18:13)
[2019-04-01] MEDS: MULTIVITAMINS 10 ML, THIAMINE 100 MG, FOLIC ACID 1 MG in SOD CHLORIDE 0.9% 1,000 ML IVPB (21:49)
[2019-04-01] MEDS: CEFTRIAXONE 1 GM/50 ML (PMX) 50 ML IVPB (21:57)
[2019-04-01] MEDS: LORAZEPAM 2 MG INJ IV (21:58)
[2019-04-02] MEDS: SOD CHLORIDE 0.9% 1,000 ML IV ×2 (00:05→07:08)
[2019-04-02] MEDS: morphine 2 MG INJ IV ×2 (06:36→22:42)
[2019-04-02 07:23] LABS: ADD MAN DIFF? NO
[2019-04-02 07:25] LABS: WHITE BLOOD COUNT 5.3 10^3/ul (4.8-10.8)
[2019-04-02 07:25] LABS: ABNORMAL IP MESSAGE 1; BASOPHIL # 0.1 10^3/ul (0.0-0.1); BASOPHILS % 2.1 % (0.0-2.0); EOSINOPHILS # 0.2 10^3/ul (0.0-0.5); EOSINOPHILS % 3.2 % (0.0-7.0); HEMATOCRIT 31.5 % (37.0-47.0); HEMOGLOBIN 9.3 g/dl (12.0-16.0); LYMPHOCYTES # 1.2 10^3/ul (0.8-2.9); LYMPHOCYTES % 23.4 % (15.0-51.0); MEAN CORPUSCULAR HEMOGLOBIN 24.7 pg (29.0-33.0); MEAN CORPUSCULAR HGB CONC 29.5 g/dl (32.0-37.0); MEAN CORPUSCULAR VOLUME 83.8 fl (82.0-101.0); MEAN PLATELET VOLUME 10.1 fl (7.4-10.4); MONOCYTE # 0.5 10^3/ul (0.3-0.9); MONOCYTES % 9.1 % (0.0-11.0); NEUTROPHIL # 3.3 10^3/ul (1.6-7.5); PLATELET COUNT 277 10^3/UL (140-415); RED BLOOD COUNT 3.76 10^6/ul (4.20-5.40); RED CELL DISTRIBUTION WIDTH 22.4 % (11.5-14.5)
[2019-04-02 07:27] LABS: POSITIVE DIFF @See below
[2019-04-02 07:35] LABS: ADD UMIC YES; UR ASCORBIC ACID NEGATIVE (NEGATIVE); UR BILIRUBIN (Dip) NEGATIVE (NEGATIVE); UR BLOOD (Dip) NEGATIVE (NEGATIVE); UR CLARITY CLEAR (CLEAR); UR COLOR YELLOW (YELLOW); UR GLUCOSE (Dip) NEGATIVE (NEGATIVE); UR KETONES (Dip) 2+ mg/dL (NEGATIVE); UR LEUKOCYTE ESTERASE (Dip) TRACE Leu/ul (NEGATIVE); UR NITRITE (Dip) NEGATIVE (NEGATIVE); UR RBC 2 /HPF (0-5); UR SPECIFIC GRAVITY (Dip) 1.015 (1.003-1.030); UR TOTAL PROTEIN (Dip) NEGATIVE (NEGATIVE); UR UROBILINOGEN (Dip) NEGATIVE (NEGATIVE); UR WBC 26 /HPF (0-5)
[2019-04-02 07:44] LABS: ANION GAP 10 (5-13); BLOOD UREA NITROGEN 6 mg/dl (7-20); CALCIUM 7.9 mg/dl (8.4-10.2); CARBON DIOXIDE 22 mmol/L (21-31); CHLORIDE 106 mmol/L (97-110); CREATININE 0.53 mg/dl (0.44-1.00); Estimated GFR > 60 mL/min (>60); GLUCOSE 58 mg/dl (70-220); LIPASE 125 U/L (23-300); MAGNESIUM 1.7 mg/dl (1.7-2.5); POTASSIUM 3.9 mmol/L (3.5-5.1); SODIUM 138 mmol/L (135-144)
[2019-04-02 07:47] LABS: HEMOGLOBIN A1C 4.9 % (0-5.9)
[2019-04-02] MEDS: LORAZEPAM 2 MG INJ IV (08:14)
[2019-04-02] MEDS: DEXTROSE 5%-0.45% NACL 1,000 ML IV (10:02)
[2019-04-02] MEDS: HYDROCODONE/APAP (5/325) TAB PO (17:57)
[2019-04-03] MEDS: ALBUTEROL/IPRATROPIUM (NEB) 3 ML AMP HHN ×3 (02:36→18:58)
[2019-04-03] MEDS: HYDROCODONE/APAP (5/325) TAB PO (09:38)
[2019-04-03] MEDS: ONDANSETRON 4 MG INJ IV (11:58)
[2019-04-03] MEDS: morphine 2 MG INJ IV (18:01)
[2019-04-04] MEDS: FOSFOMYCIN 3 GM PACKET PO (12:19)
== END 2019-04-04 13:15 | disposition home or self-care (01) | DRG 439 ==
LOC: 5EC 14:30
DX: K86.0 Alcohol-induced chronic pancreatitis (principal); F33.9 Major depressive disorder, recurrent, unspecified; N39.0 Urinary tract infection, site not specified; E44.0 Moderate protein-calorie malnutrition; Z68.1 Body mass index [BMI] 19.9 or less, adult; F10.10 Alcohol abuse, uncomplicated; F20.9 Schizophrenia, unspecified; Z91.19 Patient's noncompliance with other medical treatment and regimen; Z59.0 Homelessness; H91.90 Unspecified hearing loss, unspecified ear
CPT/HCPCS: 80048; 81001; 82962; 83036; 83690; 83735; 84100; 85025; 87081; 94640; 94664

== ENCOUNTER 2019-04-06 17:31 | Inpatient (IN) | payer OTHER ==
[2019-04-06] MEDS ORDERED: NACL 0.9% 3 ML SYG IV (19:00)
[2019-04-06] MEDS ORDERED: ONDANSETRON 4 MG INJ IV (19:00)
[2019-04-06] MEDS: SOD CHLORIDE 0.9% 1,000 ML IV (19:28)
[2019-04-06] MEDS: LORAZEPAM 2 MG INJ IV (19:28)
[2019-04-06] MEDS: SENNA TAB PO (20:43)
[2019-04-06] MEDS: HYDROCODONE/APAP (5/325) TAB PO (20:43)
[2019-04-06] MEDS ORDERED: ALBUTEROL HFA 8 GM INHALER INH (22:30)
[2019-04-07] MEDS: LORAZEPAM 2 MG INJ IV (01:32)
[2019-04-07] MEDS: SOD CHLORIDE 0.9% 1,000 ML IV ×2 (03:46→10:40)
[2019-04-07] MEDS: HYDROCODONE/APAP (5/325) TAB PO (05:23)
[2019-04-07] MEDS: PANTOPRAZOLE (EC) 40 MG TAB PO (05:23)
[2019-04-07 05:43] LABS: ADD MAN DIFF? NO
[2019-04-07 05:49] LABS: ABNORMAL IP MESSAGE 1; BASOPHIL # 0.1 10^3/ul (0.0-0.1); BASOPHILS % 1.5 % (0.0-2.0); EOSINOPHILS # 0.1 10^3/ul (0.0-0.5); EOSINOPHILS % 2.7 % (0.0-7.0); HEMATOCRIT 29.4 % (37.0-47.0); HEMOGLOBIN 8.5 g/dl (12.0-16.0); LYMPHOCYTES # 1.6 10^3/ul (0.8-2.9); LYMPHOCYTES % 38.7 % (15.0-51.0); MEAN CORPUSCULAR HEMOGLOBIN 24.9 pg (29.0-33.0); MEAN CORPUSCULAR HGB CONC 28.9 g/dl (32.0-37.0); MEAN PLATELET VOLUME 10.6 fl (7.4-10.4); MONOCYTE # 0.5 10^3/ul (0.3-0.9); NEUTROPHIL # 1.8 10^3/ul (1.6-7.5); NEUTROPHILS % 44.6 % (39.0-77.0); PLATELET COUNT 152 10^3/UL (140-415); RED BLOOD COUNT 3.42 10^6/ul (4.20-5.40); RED CELL DISTRIBUTION WIDTH 22.6 % (11.5-14.5)
[2019-04-07 06:21] LABS: POSITIVE DIFF @See below
[2019-04-07 06:23] LABS: ALANINE AMINOTRANSFERASE 42 IU/L (13-69); ALBUMIN/GLOBULIN RATIO 1.07; ALKALINE PHOSPHATASE 61 IU/L (42-121); ANION GAP 6 (5-13); ASPARTATE AMINO TRANSFERASE 56 IU/L (15-46); BILIRUBIN,INDIRECT 0.3 mg/dl (0-1.1); BILIRUBIN,TOTAL 0.3 mg/dl (0.2-1.3); BLOOD UREA NITROGEN 11 mg/dl (7-20); CALCIUM 8.4 mg/dl (8.4-10.2); CARBON DIOXIDE 26 mmol/L (21-31); CHLORIDE 111 mmol/L (97-110); CREATININE 0.59 mg/dl (0.44-1.00); Estimated GFR > 60 mL/min (>60); GLUCOSE 92 mg/dl (70-220); MAGNESIUM 1.7 mg/dl (1.7-2.5); POTASSIUM 3.8 mmol/L (3.5-5.1); SODIUM 143 mmol/L (135-144); TOTAL PROTEIN 5.8 g/dl (6.1-8.1)
[2019-04-07] MEDS: SENNA TAB PO (09:00)
== END 2019-04-07 12:51 | disposition home or self-care (01) | DRG 897 ==
LOC: PP2 17:31
PROVIDERS: Internal Medicine
DX: F10.229 Alcohol dependence with intoxication, unspecified (principal); H91.90 Unspecified hearing loss, unspecified ear; F17.210 Nicotine dependence, cigarettes, uncomplicated; Z59.0 Homelessness
CPT/HCPCS: 74176; 80053; 83036; 83735; 84100; 84443; 84703; 85025; 87081

== ENCOUNTER 2019-04-17 11:51 | Inpatient (IN) | payer OTHER ==
[2019-04-17] MEDS: morphine 2 MG INJ IV ×2 (15:09→18:42)
[2019-04-17] MEDS ORDERED: SOD CHLORIDE 0.9% 1,000 ML IV (15:33)
[2019-04-17] MEDS ORDERED: BISACODYL 10 MG SUPP PR (16:00)
[2019-04-17] MEDS ORDERED: NACL 0.9% 3 ML SYG IV (16:00)
[2019-04-17] MEDS ORDERED: ONDANSETRON 4 MG INJ IV (16:00)
[2019-04-17] MEDS ORDERED: DOCUSATE SODIUM 100 MG CAP PO (16:00)
[2019-04-17] MEDS ORDERED: ACETAMINOPHEN 325 MG TAB PO (16:00)
[2019-04-17] MEDS ORDERED: MAGNESIUM HYDROXIDE 30ML CUP PO (16:00)
[2019-04-17] MEDS: SOD CHLORIDE 0.9% 1,000 ML IV (16:01)
[2019-04-17] MEDS: FAMOTIDINE 20 MG INJ IV (21:18)
[2019-04-17] MEDS: MEROPENEM 1 GM/50ML(PMX) 50 ML IVPB (21:18)
[2019-04-17] MEDS: CHLORDIAZEPOXIDE 25 MG CAP PO (21:19)
[2019-04-17] MEDS: HEPARIN 5,000 UNIT/1 ML VIAL SC (21:20)
[2019-04-18] MEDS: SOD CHLORIDE 0.9% 1,000 ML IV ×3 (01:56→21:27)
[2019-04-18 05:52] LABS: ADD MAN DIFF? NO
[2019-04-18 05:54] LABS: WHITE BLOOD COUNT 5.1 10^3/ul (4.8-10.8)
[2019-04-18 05:55] LABS: ABNORMAL IP MESSAGE 1; BASOPHIL # 0.1 10^3/ul (0.0-0.1); BASOPHILS % 1.2 % (0.0-2.0); EOSINOPHILS # 0.2 10^3/ul (0.0-0.5); EOSINOPHILS % 3.5 % (0.0-7.0); HEMATOCRIT 28.5 % (37.0-47.0); HEMOGLOBIN 8.8 g/dl (12.0-16.0); LYMPHOCYTES # 1.6 10^3/ul (0.8-2.9); LYMPHOCYTES % 31.3 % (15.0-51.0); MEAN CORPUSCULAR HEMOGLOBIN 25.2 pg (29.0-33.0); MEAN CORPUSCULAR HGB CONC 30.9 g/dl (32.0-37.0); MEAN CORPUSCULAR VOLUME 81.7 fl (82.0-101.0); MEAN PLATELET VOLUME 10.3 fl (7.4-10.4); MONOCYTE # 0.2 10^3/ul (0.3-0.9); MONOCYTES % 4.5 % (0.0-11.0); NEUTROPHILS % 59.1 % (39.0-77.0); PLATELET COUNT 183 10^3/UL (140-415); RED BLOOD COUNT 3.49 10^6/ul (4.20-5.40); RED CELL DISTRIBUTION WIDTH 22.8 % (11.5-14.5)
[2019-04-18 06:09] LABS: POSITIVE DIFF @See below
[2019-04-18 06:17] LABS: ALANINE AMINOTRANSFERASE 37 IU/L (13-69); ALBUMIN 2.9 g/dl (3.3-4.9); ALKALINE PHOSPHATASE 69 IU/L (42-121); ANION GAP 4 (5-13); ASPARTATE AMINO TRANSFERASE 55 IU/L (15-46); BILIRUBIN,INDIRECT 0.7 mg/dl (0-1.1); BILIRUBIN,TOTAL 0.7 mg/dl (0.2-1.3); BLOOD UREA NITROGEN 3 mg/dl (7-20); CALCIUM 7.8 mg/dl (8.4-10.2); CARBON DIOXIDE 25 mmol/L (21-31); CHLORIDE 110 mmol/L (97-110); CHOL/HDL RATIO 1.4 RATIO; CHOLESTEROL 138 mg/dl (100-200); Estimated GFR > 60 mL/min (>60); GLUCOSE 85 mg/dl (70-220); HDL CHOLESTEROL 94 mg/dl (34-88); LDL CHOLESTEROL,CALCULATED 33 mg/dl; MAGNESIUM 1.5 mg/dl (1.7-2.5); PHOSPHORUS 3.1 mg/dl (2.5-4.9); POTASSIUM 3.6 mmol/L (3.5-5.1); SODIUM 139 mmol/L (135-144); TOTAL PROTEIN 5.8 g/dl (6.1-8.1); TRIGLYCERIDES 54 mg/dl (0-149)
[2019-04-18] MEDS: morphine 2 MG INJ IV ×3 (06:20→23:34)
[2019-04-18] MEDS: HEPARIN 5,000 UNIT/1 ML VIAL SC ×3 (06:20→21:32)
[2019-04-18 06:26] LABS: FREE THYROXINE INDEX (Calc) 2.53 ug/ml (0.65-3.89); T3 UPTAKE 45.1 % (23.5-40.5); T4 (THYROXINE) 5.6 ug/dl (5.5-11.0)
[2019-04-18] MEDS: MULTIVITAMINS 10 ML, THIAMINE 100 MG, FOLIC ACID 1 MG in SOD CHLORIDE 0.9% 1,000 ML IVPB (09:24)
[2019-04-18] MEDS: CHLORDIAZEPOXIDE 25 MG CAP PO ×2 (09:24→13:05)
[2019-04-18] MEDS: MEROPENEM 1 GM/50ML(PMX) 50 ML IVPB (09:24)
[2019-04-18] MEDS: FAMOTIDINE 20 MG INJ IV ×2 (09:24→21:28)
[2019-04-18 11:48] LABS: AMYLASE 38 U/L (11-123)
[2019-04-18 11:48] LABS: LIPASE 136 U/L (23-300)
[2019-04-18] MEDS: CHLORDIAZEPOXIDE 5 MG CAP PO (21:27)
[2019-04-18] MEDS: MAGNESIUM SULFATE 3 GM in DEXTROSE 5% 100 ML IVPB (23:34)
[2019-04-19 05:21] LABS: ADD MAN DIFF? NO
[2019-04-19 05:25] LABS: ABNORMAL IP MESSAGE 1; BASOPHIL # 0.1 10^3/ul (0.0-0.1); BASOPHILS % 1.4 % (0.0-2.0); EOSINOPHILS # 0.2 10^3/ul (0.0-0.5); EOSINOPHILS % 4.3 % (0.0-7.0); HEMATOCRIT 29.2 % (37.0-47.0); LYMPHOCYTES # 1.9 10^3/ul (0.8-2.9); LYMPHOCYTES % 38.4 % (15.0-51.0); MEAN CORPUSCULAR HEMOGLOBIN 25.4 pg (29.0-33.0); MEAN CORPUSCULAR HGB CONC 30.8 g/dl (32.0-37.0); MEAN CORPUSCULAR VOLUME 82.5 fl (82.0-101.0); MEAN PLATELET VOLUME 10.5 fl (7.4-10.4); MONOCYTE # 0.3 10^3/ul (0.3-0.9); MONOCYTES % 5.5 % (0.0-11.0); NEUTROPHIL # 2.4 10^3/ul (1.6-7.5); NEUTROPHILS % 49.6 % (39.0-77.0); NUCLEATED RED BLOOD CELLS% 0.4 /100WBC (0.0-0.0); PLATELET COUNT 184 10^3/UL (140-415); RED BLOOD COUNT 3.54 10^6/ul (4.20-5.40); RED CELL DISTRIBUTION WIDTH 23.3 % (11.5-14.5)
[2019-04-19 05:25] LABS: WHITE BLOOD COUNT 4.9 10^3/ul (4.8-10.8)
[2019-04-19 05:32] LABS: POSITIVE DIFF @See below
[2019-04-19] MEDS: HEPARIN 5,000 UNIT/1 ML VIAL SC (05:33)
[2019-04-19 06:01] LABS: PHOSPHORUS 3.8 mg/dl (2.5-4.9)
[2019-04-19 06:01] LABS: MAGNESIUM 2.3 mg/dl (1.7-2.5)
[2019-04-19 06:27] LABS: ALANINE AMINOTRANSFERASE 38 IU/L (13-69); ALBUMIN 2.9 g/dl (3.3-4.9); ALKALINE PHOSPHATASE 69 IU/L (42-121); AMYLASE 60 U/L (11-123); ANION GAP 2 (5-13); ASPARTATE AMINO TRANSFERASE 61 IU/L (15-46); BILIRUBIN,INDIRECT 0.3 mg/dl (0-1.1); BILIRUBIN,TOTAL 0.3 mg/dl (0.2-1.3); BLOOD UREA NITROGEN 5 mg/dl (7-20); CALCIUM 8.3 mg/dl (8.4-10.2); CARBON DIOXIDE 28 mmol/L (21-31); CHLORIDE 109 mmol/L (97-110); CREATININE 0.54 mg/dl (0.44-1.00); Estimated GFR > 60 mL/min (>60); GLUCOSE 89 mg/dl (70-220); LIPASE 164 U/L (23-300); POTASSIUM 3.7 mmol/L (3.5-5.1); SODIUM 139 mmol/L (135-144); TOTAL PROTEIN 5.8 g/dl (6.1-8.1)
[2019-04-19] MEDS: SOD CHLORIDE 0.9% 1,000 ML IV (08:00)
[2019-04-19] MEDS: MUPIROCIN 2% 22 GM OINT TOP (09:25)
[2019-04-19] MEDS: FAMOTIDINE 20 MG INJ IV (09:26)
[2019-04-19] MEDS: MULTIVITAMINS 10 ML, THIAMINE 100 MG, FOLIC ACID 1 MG in SOD CHLORIDE 0.9% 1,000 ML IVPB (09:26)
[2019-04-19] MEDS: morphine 2 MG INJ IV (09:26)
[2019-04-19] MEDS: CHLORDIAZEPOXIDE 5 MG CAP PO (09:26)
== END 2019-04-19 12:00 | disposition home or self-care (01) | DRG 439 ==
LOC: 5EC 11:51
DX: K85.20 Alcohol induced acute pancreatitis without necrosis or infection (principal); N39.0 Urinary tract infection, site not specified; Z59.0 Homelessness; F32.9 Major depressive disorder, single episode, unspecified; J44.9 Chronic obstructive pulmonary disease, unspecified; Z72.0 Tobacco use; Z22.322 Carrier or suspected carrier of Methicillin resistant Staphylococcus aureus
CPT/HCPCS: 80053; 80061; 82150; 83036; 83690; 83735; 84100; 84436; 84443; 84479; 85025; 87040-91; 87081; 87086

== ENCOUNTER 2019-04-19 13:02 | Emergency (ER) | payer OTHER ==
[2019-04-19] MEDS ORDERED: MECLIZINE 12.5 MG TAB PO (14:30)
== END 2019-04-19 14:20 | disposition left against medical advice (07) ==
LOC: FTE 13:02
DX: R42 Dizziness and giddiness (principal); J44.9 Chronic obstructive pulmonary disease, unspecified; F17.200 Nicotine dependence, unspecified, uncomplicated
CPT/HCPCS: 93005; 99283-25

== ENCOUNTER 2019-04-26 01:15 | Inpatient (IN) | payer OTHER ==
[2019-04-26] MEDS ORDERED: ONDANSETRON 4 MG INJ IV (04:00)
[2019-04-26] MEDS ORDERED: NACL 0.9% 3 ML SYG IV (04:00)
[2019-04-26] MEDS: DEXTROSE 5%-0.45% NACL 1,000 ML IV ×2 (04:12→13:57)
[2019-04-26] MEDS: ACETAMINOPHEN 325 MG TAB PO (04:19)
[2019-04-26] MEDS: ALBUTEROL/IPRATROPIUM (NEB) 3 ML AMP HHN (04:34)
[2019-04-26 06:27] LABS: ADD MAN DIFF? NO
[2019-04-26 06:40] LABS: ABNORMAL IP MESSAGE 1; BASOPHIL # 0.1 10^3/ul (0.0-0.1); BASOPHILS % 0.8 % (0.0-2.0); EOSINOPHILS % 0.4 % (0.0-7.0); HEMATOCRIT 29.5 % (37.0-47.0); HEMOGLOBIN 8.9 g/dl (12.0-16.0); LYMPHOCYTES # 0.9 10^3/ul (0.8-2.9); LYMPHOCYTES % 8.8 % (15.0-51.0); MEAN CORPUSCULAR HEMOGLOBIN 25.4 pg (29.0-33.0); MEAN CORPUSCULAR HGB CONC 30.2 g/dl (32.0-37.0); MEAN CORPUSCULAR VOLUME 84.3 fl (82.0-101.0); MEAN PLATELET VOLUME 10.2 fl (7.4-10.4); MONOCYTE # 0.9 10^3/ul (0.3-0.9); MONOCYTES % 8.9 % (0.0-11.0); NEUTROPHIL # 8.2 10^3/ul (1.6-7.5); NEUTROPHILS % 80.7 % (39.0-77.0); NUCLEATED RED BLOOD CELLS% 0.2 /100WBC (0.0-0.0); PLATELET COUNT 278 10^3/UL (140-415); RED CELL DISTRIBUTION WIDTH 23.9 % (11.5-14.5)
[2019-04-26 06:40] LABS: WHITE BLOOD COUNT 10.2 10^3/ul (4.8-10.8)
[2019-04-26 06:59] LABS: Estimated GFR > 60 mL/min (>60)
[2019-04-26 07:06] LABS: POSITIVE DIFF @See below
[2019-04-26 07:22] LABS: ALANINE AMINOTRANSFERASE 22 IU/L (13-69); ALBUMIN 3.3 g/dl (3.3-4.9); ALBUMIN/GLOBULIN RATIO 1.03; ALKALINE PHOSPHATASE 126 IU/L (42-121); ANION GAP 9 (5-13); ASPARTATE AMINO TRANSFERASE 30 IU/L (15-46); BILIRUBIN,INDIRECT 0.7 mg/dl (0-1.1); BILIRUBIN,TOTAL 0.7 mg/dl (0.2-1.3); BLOOD UREA NITROGEN 6 mg/dl (7-20); CARBON DIOXIDE 25 mmol/L (21-31); CHLORIDE 105 mmol/L (97-110); CREATININE 0.47 mg/dl (0.44-1.00); GLUCOSE 120 mg/dl (70-220); LIPASE 76 U/L (23-300); MAGNESIUM 1.2 mg/dl (1.7-2.5); POTASSIUM 3.7 mmol/L (3.5-5.1); SODIUM 139 mmol/L (135-144); TOTAL PROTEIN 6.5 g/dl (6.1-8.1)
[2019-04-26] MEDS: HEPARIN 5,000 UNIT/1 ML VIAL SC ×2 (08:29→21:05)
[2019-04-26] MEDS: FAMOTIDINE 20 MG INJ IV (08:29)
[2019-04-26] MEDS: LEVOFLOXACIN 500 MG TAB PO (13:04)
[2019-04-26] MEDS: HYDROCODONE/APAP (5/325) TAB PO (13:06)
[2019-04-26] MEDS: GUAIFENESIN/CODEINE 5ML CUP PO (21:06)
[2019-04-26] MEDS: FAMOTIDINE 20 MG TAB PO (22:03)
[2019-04-27] MEDS: ALBUTEROL/IPRATROPIUM (NEB) 3 ML AMP HHN ×2 (02:25→21:46)
[2019-04-27] MEDS: HYDROCODONE/APAP (5/325) TAB PO ×4 (02:53→22:50)
[2019-04-27] MEDS: LEVOFLOXACIN 500 MG TAB PO (05:08)
[2019-04-27 05:17] LABS: ADD MAN DIFF? NO
[2019-04-27 05:19] LABS: WHITE BLOOD COUNT 7.5 10^3/ul (4.8-10.8)
[2019-04-27 05:19] LABS: ABNORMAL IP MESSAGE 1; BASOPHILS % 0.5 % (0.0-2.0); EOSINOPHILS # 0.2 10^3/ul (0.0-0.5); EOSINOPHILS % 2.7 % (0.0-7.0); HEMATOCRIT 31.2 % (37.0-47.0); HEMOGLOBIN 9.3 g/dl (12.0-16.0); LYMPHOCYTES # 1.2 10^3/ul (0.8-2.9); LYMPHOCYTES % 15.4 % (15.0-51.0); MEAN CORPUSCULAR HEMOGLOBIN 25.3 pg (29.0-33.0); MEAN CORPUSCULAR HGB CONC 29.8 g/dl (32.0-37.0); MEAN CORPUSCULAR VOLUME 84.8 fl (82.0-101.0); MEAN PLATELET VOLUME 10.4 fl (7.4-10.4); MONOCYTE # 0.5 10^3/ul (0.3-0.9); MONOCYTES % 6.3 % (0.0-11.0); NEUTROPHIL # 5.6 10^3/ul (1.6-7.5); NEUTROPHILS % 74.6 % (39.0-77.0); PLATELET COUNT 274 10^3/UL (140-415); RED BLOOD COUNT 3.68 10^6/ul (4.20-5.40); RED CELL DISTRIBUTION WIDTH 23.9 % (11.5-14.5)
[2019-04-27 05:33] LABS: POSITIVE DIFF @See below
[2019-04-27 05:55] LABS: ANION GAP 6 (5-13); BLOOD UREA NITROGEN 3 mg/dl (7-20); CALCIUM 8.3 mg/dl (8.4-10.2); CARBON DIOXIDE 27 mmol/L (21-31); CHLORIDE 106 mmol/L (97-110); CREATININE 0.47 mg/dl (0.44-1.00); Estimated GFR > 60 mL/min (>60); GLUCOSE 76 mg/dl (70-220); MAGNESIUM 1.5 mg/dl (1.7-2.5); PHOSPHORUS 3.3 mg/dl (2.5-4.9); POTASSIUM 3.6 mmol/L (3.5-5.1); SODIUM 139 mmol/L (135-144)
[2019-04-27] MEDS: FAMOTIDINE 20 MG TAB PO ×2 (08:22→20:50)
[2019-04-27] MEDS: THIAMINE 100 MG TAB PO (08:22)
[2019-04-27] MEDS: FOLIC ACID 1 MG TAB PO (08:22)
[2019-04-27] MEDS: HEPARIN 5,000 UNIT/1 ML VIAL SC ×2 (08:23→20:51)
[2019-04-27] MEDS: GUAIFENESIN/CODEINE 5ML CUP PO ×3 (10:26→20:52)
[2019-04-27] MEDS: MAGNESIUM SULFATE 2 GM/50 ML 50 ML IVPB (16:38)
[2019-04-28] MEDS: LORAZEPAM 0.5 MG TAB PO (02:15)
[2019-04-28] MEDS: ALBUTEROL/IPRATROPIUM (NEB) 3 ML AMP HHN (02:23)
[2019-04-28] MEDS: LEVOFLOXACIN 500 MG TAB PO (05:09)
[2019-04-28 06:29] LABS: ANION GAP 8 (5-13); BLOOD UREA NITROGEN 3 mg/dl (7-20); CALCIUM 8.9 mg/dl (8.4-10.2); CARBON DIOXIDE 29 mmol/L (21-31); CHLORIDE 104 mmol/L (97-110); CREATININE 0.46 mg/dl (0.44-1.00); Estimated GFR > 60 mL/min (>60); GLUCOSE 93 mg/dl (70-220); MAGNESIUM 1.6 mg/dl (1.7-2.5); POTASSIUM 3.8 mmol/L (3.5-5.1); SODIUM 141 mmol/L (135-144)
[2019-04-28] MEDS: GUAIFENESIN/CODEINE 5ML CUP PO (08:15)
[2019-04-28] MEDS: FAMOTIDINE 20 MG TAB PO (08:15)
[2019-04-28] MEDS: FOLIC ACID 1 MG TAB PO (08:15)
[2019-04-28] MEDS: HEPARIN 5,000 UNIT/1 ML VIAL SC (08:16)
[2019-04-28] MEDS: THIAMINE 100 MG TAB PO (08:16)
[2019-04-28] MEDS: HYDROCODONE/APAP (5/325) TAB PO (09:47)
== END 2019-04-28 17:12 | disposition home or self-care (01) | DRG 439 ==
LOC: 2NE 01:15 → 5EC 07:15
DX: K85.20 Alcohol induced acute pancreatitis without necrosis or infection (principal); J44.1 Chronic obstructive pulmonary disease with (acute) exacerbation; K86.0 Alcohol-induced chronic pancreatitis; K29.70 Gastritis, unspecified, without bleeding; K20.9 Esophagitis, unspecified; H91.90 Unspecified hearing loss, unspecified ear; F17.200 Nicotine dependence, unspecified, uncomplicated; F10.10 Alcohol abuse, uncomplicated; D64.9 Anemia, unspecified; Z59.0 Homelessness; Z91.14 Patient's other noncompliance with medication regimen
CPT/HCPCS: 71046; 80048; 80053; 83690; 83735; 84100; 85025; 94640; 94664

== ENCOUNTER 2019-05-05 17:38 | Inpatient (IN) | payer OTHER ==
[2019-05-05] MEDS ORDERED: NACL 0.9% 3 ML SYG IV (18:30)
[2019-05-05 19:22] LABS: ADD MAN DIFF? NO
[2019-05-05 19:23] LABS: WHITE BLOOD COUNT 6.4 10^3/ul (4.8-10.8)
[2019-05-05 19:23] LABS: ABNORMAL IP MESSAGE 1; BASOPHIL # 0.1 10^3/ul (0.0-0.1); BASOPHILS % 1.6 % (0.0-2.0); EOSINOPHILS % 0.5 % (0.0-7.0); HEMATOCRIT 33.1 % (37.0-47.0); HEMOGLOBIN 9.6 g/dl (12.0-16.0); LYMPHOCYTES % 30.9 % (15.0-51.0); MEAN CORPUSCULAR HEMOGLOBIN 24.7 pg (29.0-33.0); MEAN CORPUSCULAR VOLUME 85.3 fl (82.0-101.0); MEAN PLATELET VOLUME 9.5 fl (7.4-10.4); MONOCYTE # 0.5 10^3/ul (0.3-0.9); NEUTROPHIL # 3.8 10^3/ul (1.6-7.5); NEUTROPHILS % 58.5 % (39.0-77.0); PLATELET COUNT 355 10^3/UL (140-415); RED BLOOD COUNT 3.88 10^6/ul (4.20-5.40); RED CELL DISTRIBUTION WIDTH 25.2 % (11.5-14.5)
[2019-05-05 19:29] LABS: POSITIVE DIFF @See below
[2019-05-05 19:42] LABS: ALANINE AMINOTRANSFERASE 39 IU/L (13-69); ALBUMIN 3.4 g/dl (3.3-4.9); ALBUMIN/GLOBULIN RATIO 0.97; ALKALINE PHOSPHATASE 114 IU/L (42-121); ANION GAP 6 (5-13); ASPARTATE AMINO TRANSFERASE 36 IU/L (15-46); BILIRUBIN,INDIRECT 0.5 mg/dl (0-1.1); BILIRUBIN,TOTAL 0.5 mg/dl (0.2-1.3); BLOOD UREA NITROGEN 6 mg/dl (7-20); CALCIUM 8.7 mg/dl (8.4-10.2); CARBON DIOXIDE 25 mmol/L (21-31); CHLORIDE 109 mmol/L (97-110); CREATININE 0.63 mg/dl (0.44-1.00); Estimated GFR > 60 mL/min (>60); GLUCOSE 86 mg/dl (70-220); POTASSIUM 3.8 mmol/L (3.5-5.1); SODIUM 140 mmol/L (135-144); TOTAL PROTEIN 6.9 g/dl (6.1-8.1)
[2019-05-05] MEDS: HYDROCODONE/APAP (5/325) TAB PO (21:13)
[2019-05-06] MEDS: HYDROCODONE/APAP (5/325) TAB PO ×3 (05:00→20:34)
[2019-05-06 05:28] LABS: ADD MAN DIFF? NO
[2019-05-06 05:31] LABS: ABNORMAL IP MESSAGE 1; BASOPHIL # 0.1 10^3/ul (0.0-0.1); BASOPHILS % 1.7 % (0.0-2.0); EOSINOPHILS # 0.1 10^3/ul (0.0-0.5); EOSINOPHILS % 0.8 % (0.0-7.0); HEMATOCRIT 31.6 % (37.0-47.0); HEMOGLOBIN 9.1 g/dl (12.0-16.0); LYMPHOCYTES # 2.2 10^3/ul (0.8-2.9); LYMPHOCYTES % 33.9 % (15.0-51.0); MEAN CORPUSCULAR HGB CONC 28.8 g/dl (32.0-37.0); MEAN CORPUSCULAR VOLUME 86.8 fl (82.0-101.0); MEAN PLATELET VOLUME 10.2 fl (7.4-10.4); MONOCYTE # 0.4 10^3/ul (0.3-0.9); MONOCYTES % 6.8 % (0.0-11.0); NEUTROPHIL # 3.6 10^3/ul (1.6-7.5); NEUTROPHILS % 56.6 % (39.0-77.0); NUCLEATED RED BLOOD CELLS% 0.3 /100WBC (0.0-0.0); PLATELET COUNT 333 10^3/UL (140-415); RED BLOOD COUNT 3.64 10^6/ul (4.20-5.40); RED CELL DISTRIBUTION WIDTH 25.2 % (11.5-14.5)
[2019-05-06 05:31] LABS: WHITE BLOOD COUNT 6.4 10^3/ul (4.8-10.8)
[2019-05-06 06:26] LABS: POSITIVE DIFF @See below
[2019-05-06 06:28] LABS: ALANINE AMINOTRANSFERASE 28 IU/L (13-69); ALBUMIN/GLOBULIN RATIO 0.96; ALKALINE PHOSPHATASE 95 IU/L (42-121); ANION GAP 7 (5-13); ASPARTATE AMINO TRANSFERASE 39 IU/L (15-46); BILIRUBIN,INDIRECT 0.5 mg/dl (0-1.1); BILIRUBIN,TOTAL 0.5 mg/dl (0.2-1.3); BLOOD UREA NITROGEN 8 mg/dl (7-20); CALCIUM 8.6 mg/dl (8.4-10.2); CARBON DIOXIDE 24 mmol/L (21-31); CHLORIDE 110 mmol/L (97-110); CREATININE 0.56 mg/dl (0.44-1.00); Estimated GFR > 60 mL/min (>60); GLUCOSE 82 mg/dl (70-220); POTASSIUM 3.8 mmol/L (3.5-5.1); SODIUM 141 mmol/L (135-144); TOTAL PROTEIN 6.1 g/dl (6.1-8.1)
[2019-05-06] MEDS: ENOXAPARIN 30 MG/0.3 ML SYG SC (09:00)
[2019-05-06] MEDS: LORAZEPAM 2 MG INJ IV (14:43)
[2019-05-06] MEDS ORDERED: ALBUTEROL HFA 8 GM INHALER INH (20:00)
[2019-05-07 07:57] LABS: ADD MAN DIFF? NO
[2019-05-07 08:07] LABS: ABNORMAL IP MESSAGE 1; BASOPHIL # 0.1 10^3/ul (0.0-0.1); BASOPHILS % 1.7 % (0.0-2.0); EOSINOPHILS # 0.1 10^3/ul (0.0-0.5); EOSINOPHILS % 1.7 % (0.0-7.0); HEMATOCRIT 32.6 % (37.0-47.0); HEMOGLOBIN 9.6 g/dl (12.0-16.0); LYMPHOCYTES # 1.8 10^3/ul (0.8-2.9); LYMPHOCYTES % 33.4 % (15.0-51.0); MEAN CORPUSCULAR HEMOGLOBIN 24.9 pg (29.0-33.0); MEAN CORPUSCULAR HGB CONC 29.4 g/dl (32.0-37.0); MEAN CORPUSCULAR VOLUME 84.5 fl (82.0-101.0); MEAN PLATELET VOLUME 10.5 fl (7.4-10.4); MONOCYTE # 0.4 10^3/ul (0.3-0.9); MONOCYTES % 6.5 % (0.0-11.0); NEUTROPHILS % 56.3 % (39.0-77.0); PLATELET COUNT 376 10^3/UL (140-415); RED BLOOD COUNT 3.86 10^6/ul (4.20-5.40); RED CELL DISTRIBUTION WIDTH 24.6 % (11.5-14.5)
[2019-05-07 08:07] LABS: WHITE BLOOD COUNT 5.4 10^3/ul (4.8-10.8)
[2019-05-07 08:12] LABS: POSITIVE DIFF @See below
[2019-05-07 08:23] LABS: ALANINE AMINOTRANSFERASE 27 IU/L (13-69); ALBUMIN 3.1 g/dl (3.3-4.9); ALBUMIN/GLOBULIN RATIO 0.96; ALKALINE PHOSPHATASE 82 IU/L (42-121); ANION GAP 6 (5-13); ASPARTATE AMINO TRANSFERASE 28 IU/L (15-46); BILIRUBIN,INDIRECT 0.4 mg/dl (0-1.1); BILIRUBIN,TOTAL 0.4 mg/dl (0.2-1.3); BLOOD UREA NITROGEN 8 mg/dl (7-20); CALCIUM 8.7 mg/dl (8.4-10.2); CARBON DIOXIDE 26 mmol/L (21-31); CHLORIDE 107 mmol/L (97-110); CREATININE 0.49 mg/dl (0.44-1.00); Estimated GFR > 60 mL/min (>60); GLUCOSE 85 mg/dl (70-220); POTASSIUM 3.6 mmol/L (3.5-5.1); SODIUM 139 mmol/L (135-144); TOTAL PROTEIN 6.3 g/dl (6.1-8.1)
[2019-05-07 08:25] LABS: PHOSPHORUS 4.4 mg/dl (2.5-4.9)
[2019-05-07 08:25] LABS: MAGNESIUM 1.5 mg/dl (1.7-2.5)
[2019-05-07 08:36] LABS: TROPONIN-I < 0.012 ng/ml (0.000-0.120)
[2019-05-07] MEDS: ENOXAPARIN 30 MG/0.3 ML SYG SC (09:17)
== END 2019-05-07 12:16 | disposition left against medical advice (07) | DRG 149 ==
LOC: PP2 17:38
DX: H81.10 Benign paroxysmal vertigo, unspecified ear (principal); J43.9 Emphysema, unspecified; H91.90 Unspecified hearing loss, unspecified ear; R11.0 Nausea; Z53.21 Procedure and treatment not carried out due to patient leaving prior to being seen by health care provider
CPT/HCPCS: 70551; 80053; 83036; 83735; 84100; 84443; 84484; 84703; 85025

== ENCOUNTER 2019-05-18 10:51 | Observation (INO) | payer OTHER ==
[2019-05-18] MEDS: ONDANSETRON 4 MG INJ IV (13:11)
[2019-05-18] MEDS: ACETAMINOPHEN 325 MG TAB PO (13:11)
[2019-05-18 13:28] LABS: ADD UMIC YES; UR ASCORBIC ACID NEGATIVE (NEGATIVE); UR BACTERIA FEW /HPF (NONE SEEN); UR BILIRUBIN (Dip) NEGATIVE (NEGATIVE); UR BLOOD (Dip) 1+ mg/dL (NEGATIVE); UR CLARITY SLIGHTLY CLOUDY (CLEAR); UR COLOR YELLOW (YELLOW); UR GLUCOSE (Dip) NEGATIVE (NEGATIVE); UR KETONES (Dip) NEGATIVE (NEGATIVE); UR LEUKOCYTE ESTERASE (Dip) TRACE Leu/ul (NEGATIVE); UR NITRITE (Dip) NEGATIVE (NEGATIVE); UR RBC 2 /HPF (0-5); UR SPECIFIC GRAVITY (Dip) 1.013 (1.003-1.030); UR SQUAMOUS EPITHELIAL CELL FEW /HPF (FEW); UR TOTAL PROTEIN (Dip) NEGATIVE (NEGATIVE); UR UROBILINOGEN (Dip) NEGATIVE (NEGATIVE); UR WBC 7 /HPF (0-5)
[2019-05-18] MEDS ORDERED: IBUPROFEN 600 MG TAB PO (13:30)
[2019-05-18 13:49] LABS: LIPASE 221 U/L (23-300); MAGNESIUM 1.2 mg/dl (1.7-2.5)
[2019-05-18 13:49] LABS: PHOSPHORUS 4.2 mg/dl (2.5-4.9)
[2019-05-18 13:54] LABS: BARBITURATES Negative (NEGATIVE); BENZODIAZEPINES Negative (NEGATIVE); CANNABINOIDS Negative (NEGATIVE); COCAINE Negative (NEGATIVE); OPIATES Negative (NEGATIVE)
[2019-05-18 13:55] LABS: AMPHETAMINE/METHAMPHETAMINE Positive (NEGATIVE)
[2019-05-18] MEDS ORDERED: ONDANSETRON 4 MG INJ IV (15:00)
[2019-05-18] MEDS: FAMOTIDINE 20 MG INJ IV (15:21)
[2019-05-18] MEDS: morphine 2 MG INJ IV (15:21)
[2019-05-18] MEDS: MAGNESIUM SULFATE 2 GM/50 ML 50 ML IVPB (15:21)
[2019-05-18] MEDS ORDERED: VANCOMYCIN IV PER PHARMACY XX (15:30)
[2019-05-18] MEDS ORDERED: ALBUTEROL/IPRATROPIUM (NEB) 3 ML AMP HHN (15:30)
[2019-05-18] MEDS: DOCUSATE SODIUM 250 MG CAP PO (15:30)
[2019-05-18] MEDS: ALBUTEROL/IPRATROPIUM (NEB) 3 ML AMP HHN (15:58)
[2019-05-18] MEDS: LEVOFLOXACIN 500MG/D5W (PMX) 100 ML IVPB (16:50)
[2019-05-18] MEDS: DIPHENHYDRAMINE 50 MG INJ IV (17:35)
[2019-05-18] MEDS: BUDESONIDE (NEB) 0.25 MG/2 ML AMP HHN (19:55)
[2019-05-18] MEDS ORDERED: NACL 0.9% 3 ML SYG IV (22:30)
[2019-05-18] MEDS ORDERED: NITROGLYCERIN (SL) 0.4 MG TAB SL (22:30)
[2019-05-18] MEDS ORDERED: ACETAMINOPHEN 325 MG TAB PO (22:30)
[2019-05-18] MEDS ORDERED: BISACODYL (EC) 5 MG TAB PO (22:30)
[2019-05-18] MEDS ORDERED: DOCUSATE SODIUM 100 MG CAP PO (22:30)
[2019-05-18] MEDS: FAMOTIDINE 20 MG TAB PO (23:08)
[2019-05-18] MEDS: VANCOMYCIN 1 GM in 250 ML IVPB (23:31)
[2019-05-18 23:33] LABS: CREATINE KINASE 70 IU/L (23-200)
[2019-05-18 23:45] LABS: CK INDEX 2.2; CK-MB 1.53 ng/ml (0.0-2.4); TROPONIN-I < 0.012 ng/ml (0.000-0.120)
[2019-05-19] MEDS: VANCOMYCIN 750 MG (PMX) 250 ML IVPB ×2 (02:00→13:35)
[2019-05-19] MEDS: morphine 2 MG INJ IV (02:27)
[2019-05-19] MEDS ORDERED: PENDING SANTYL ORDER FOR WOUND CARE XX (04:30)
[2019-05-19] MEDS: HYDROCODONE/APAP (5/325) TAB PO (05:30)
[2019-05-19 06:33] LABS: ADD MAN DIFF? NO
[2019-05-19 06:42] LABS: ABNORMAL IP MESSAGE 1; BASOPHIL # 0.1 10^3/ul (0.0-0.1); BASOPHILS % 1.5 % (0.0-2.0); EOSINOPHILS # 0.1 10^3/ul (0.0-0.5); EOSINOPHILS % 1.8 % (0.0-7.0); HEMATOCRIT 32.2 % (37.0-47.0); HEMOGLOBIN 9.4 g/dl (12.0-16.0); LYMPHOCYTES # 1.6 10^3/ul (0.8-2.9); LYMPHOCYTES % 28.5 % (15.0-51.0); MEAN CORPUSCULAR HEMOGLOBIN 24.7 pg (29.0-33.0); MEAN CORPUSCULAR HGB CONC 29.2 g/dl (32.0-37.0); MEAN CORPUSCULAR VOLUME 84.5 fl (82.0-101.0); MEAN PLATELET VOLUME 9.9 fl (7.4-10.4); MONOCYTE # 0.4 10^3/ul (0.3-0.9); MONOCYTES % 6.5 % (0.0-11.0); NEUTROPHIL # 3.4 10^3/ul (1.6-7.5); NEUTROPHILS % 61.2 % (39.0-77.0); PLATELET COUNT 168 10^3/UL (140-415); RED BLOOD COUNT 3.81 10^6/ul (4.20-5.40); RED CELL DISTRIBUTION WIDTH 24.3 % (11.5-14.5)
[2019-05-19 06:42] LABS: WHITE BLOOD COUNT 5.5 10^3/ul (4.8-10.8)
[2019-05-19 07:00] LABS: CREATINE KINASE 65 IU/L (23-200)
[2019-05-19 07:05] LABS: ALANINE AMINOTRANSFERASE 41 IU/L (13-69); ALBUMIN/GLOBULIN RATIO 0.96; ALKALINE PHOSPHATASE 83 IU/L (42-121); ANION GAP 3 (5-13); ASPARTATE AMINO TRANSFERASE 58 IU/L (15-46); BILIRUBIN,INDIRECT 0.7 mg/dl (0-1.1); BILIRUBIN,TOTAL 0.7 mg/dl (0.2-1.3); BLOOD UREA NITROGEN 6 mg/dl (7-20); CALCIUM 8.2 mg/dl (8.4-10.2); CARBON DIOXIDE 31 mmol/L (21-31); CHLORIDE 101 mmol/L (97-110); CREATININE 0.52 mg/dl (0.44-1.00); Estimated GFR > 60 mL/min (>60); GLUCOSE 67 mg/dl (70-220); SODIUM 135 mmol/L (135-144); TOTAL PROTEIN 6.1 g/dl (6.1-8.1)
[2019-05-19 07:12] LABS: CK INDEX 2.5; CK-MB 1.61 ng/ml (0.0-2.4); TROPONIN-I < 0.012 ng/ml (0.000-0.120)
[2019-05-19 07:41] LABS: MAGNESIUM 1.9 mg/dl (1.7-2.5)
[2019-05-19 07:41] LABS: CHOL/HDL RATIO 1.7 RATIO; CHOLESTEROL 136 mg/dl (100-200); HDL CHOLESTEROL 78 mg/dl (34-88); LDL CHOLESTEROL,CALCULATED 49 mg/dl; TRIGLYCERIDES 47 mg/dl (0-149)
[2019-05-19 07:50] LABS: POSITIVE DIFF @See below
[2019-05-19] MEDS: FAMOTIDINE 20 MG TAB PO (08:23)
[2019-05-19] MEDS: POTASSIUM CHLORIDE (SR) 20 MEQ TAB PO ×3 (08:23→15:12)
[2019-05-19] MEDS: DOCUSATE SODIUM 250 MG CAP PO (08:24)
[2019-05-19] MEDS: MAGNESIUM SULFATE 3 GM in DEXTROSE 5% 100 ML IVPB (08:25)
[2019-05-19] MEDS: MICONAZOLE 2% 45 GM VAG CR VAG (15:33)
[2019-05-19] MEDS: LEVOFLOXACIN 500MG/D5W (PMX) 100 ML IVPB (15:33)
[2019-05-19] MEDS ORDERED: VANCOMYCIN 750 MG (PMX) 250 ML IVPB (21:00)
== END 2019-05-19 18:45 | disposition home or self-care (01) ==
LOC: TEL 05-19 00:41 → E/R 10:51 → 2NE 12:20 → PP2 20:46
DX: R07.9 Chest pain, unspecified (principal); F15.10 Other stimulant abuse, uncomplicated; F32.9 Major depressive disorder, single episode, unspecified; E83.42 Hypomagnesemia; L30.9 Dermatitis, unspecified; B37.3 Candidiasis of vulva and vagina; N39.0 Urinary tract infection, site not specified; H91.90 Unspecified hearing loss, unspecified ear
CPT/HCPCS: 80053; 80061; 80307; 81001; 82550; 82553; 83036; 83690; 83735; 84100; 84443; 84484; 85025; 94664; G0378